=== PATIENT | female | born 1955 | race African-American/Black ===

== ENCOUNTER → 2017-12-30 | Outpatient (CLI) | payer MEDICARE, OTHER | END | disposition home or self-care (01) | LOC: KCIC MAMMO 12:20 | DX: Z12.31 Encounter for screening mammogram for malignant neoplasm of breast (principal) | CPT/HCPCS: 77063; 77067 ==

== ENCOUNTER 2018-07-10 03:48 | Emergency (ER) | payer MEDICARE, OTHER ==
[~2018-07-10] VITALS: Ht 170.2 cm; Wt 111.1 kg
[2018-07-10 04:10] VITALS: BP 218/119
[2018-07-10] MEDS ORDERED: PENICILLIN G K 5,000,000 UNIT in IV DEXTROSE 5% 100ML 100 ML IV ONE (05:30)
[2018-07-10] MEDS ORDERED: DEXAMETHASONE SOD PHOS 20 MG/5 ML VIAL. IM ONE (05:30)
--- NOTE | 2018-07-10 05:54 | PHYS DOC ---
Past Medical History Past Medical History: Bronchitis, Hypertension, Other Additional Past Medical Histor: right hand tendonitis; HTN medications DC'd by PCP Past Surgical History: No Surgical History Alcohol Use: None Drug Use: None Adult General Chief Complaint Chief Complaint: SORE THROAT HPI HPI Patient is a 63 year old female who presents with sore throat, nasal congestion , rhinorrhea. Patient also reports voice hoarseness. No fever chills, painful or difficulty swallowing. No other acute symptoms or complaints. Symptom onset was 2 days ago.[] Review of Systems Review of Systems Symptoms as per history of present illness. All other review symptoms are negative [] All other systems were reviewed and found to be within normal limits, except as documented in this note. Current Medications Current Medications Current Medications Medications (Trade) Dose Ordered Sig/Carol Start Time Stop Time Status Last Admin Dose Admin Dexamethasone Sodium Phosphate (Decadron) 10 mg 1X ONCE 07/10/18 05:30 07/10/18 05:31 DC Penicillin G Benzathine (Bicillin L-A) 2,400,000 unit 1X ONCE 07/10/18 06:00 07/10/18 06:01 Penicillin G Potassium [id number] unit/Dextrose 100 ml @ 100 mls/hr 1X ONCE 07/10/18 05:30 07/10/18 06:29 Cancel Allergies Allergies Allergies Coded Allergies Type Severity Reaction Last Updated Verified No Known Drug Allergies 09/23/13 No Physical Exam Physical Exam Constitutional: Well developed, well nourished, no acute distress, non-toxic appearance. [] HENT: Normocephalic, atraumatic, bilateral external ears normal, oropharynx moist, oropharyngeal, minimal swelling with postnasal drip, no dysphonia and dysphagia or drooling. No trismus. [] Eyes: PERRLA, EOMI, conjunctiva normal, no discharge. [] Neck: Normal range of motion, no tenderness, supple, no stridor. [] Cardiovascular:Heart rate regular rhythm, no murmur [] Lungs & Thorax: Bilateral breath sounds clear to auscultation [] Abdomen: Bowel sounds normal, soft, no tenderness. [] Skin: Warm, dry, no erythema, no rash. [] Extremities: No tenderness, no cyanosis, no clubbing, ROM intact, no edema. [] Current Patient Data Vital Signs Vital Signs Date Time Temp Pulse Resp B/P (MAP) Pulse Ox O2 Delivery O2 Flow Rate FiO2 07/10/18 04:10 98.8 104 20 218/119 (152) 97 Room Air 98.8 EKG EKG [] Radiology/Procedures Radiology/Procedures [] Course & Med Decision Making Course & Med Decision Making Pertinent Labs and Imaging studies reviewed. (See chart for details) [Acute pharyngitis. Decadron, penicillin reaction provided. Recommend supportive care, PCP follow-up. Return precautions reviewed.] Dragon Disclaimer Sung Disclaimer This electronic medical record was generated, in whole or in part, using a voice recognition dictation system. Departure Departure Impression: Primary Impression: Acute pharyngitis Disposition: 01 HOME, SELF-CARE Condition: GOOD Patient Instructions: Sore Throat, [id number] Additional Instructions: Please take ibuprofen as needed for pain, use salt water gargles and follow up with your PCP as needed. TRINH BENITES DO Jul 10, 2018 05:54
[2018-07-10] MEDS ORDERED: PENICILLIN G BENZATHINE LA 2,400,000 UNIT/4 ML DISP.SYRIN. IM ONE (06:00)
== END 2018-07-10 05:57 | disposition home or self-care (01) ==
LOC: ER 03:48
DX: J02.9 Acute pharyngitis, unspecified (principal); R09.81 Nasal congestion; J34.89 Other specified disorders of nose and nasal sinuses; R49.0 Dysphonia; I10 Essential (primary) hypertension
CPT/HCPCS: 96372; 99283; J0561; J1100